=== PATIENT | male | born 1985 | race Caucasian/White ===

== ENCOUNTER → 2024-05-28 | Outpatient (CLI) | payer OTHER ==
[~2024-05-28] MED LIST: Bactrim Ds Tab1 EACH PO; CYCL10 PO; HYDACE5 PO; IBUP800 PO; NAPR550 PO; Norco 5-325 Ta1 EACH PO; SERT25 PO
== END ==
LOC: LAB 18:28 → LAB SHORT 18:28
DX: R21 Rash and other nonspecific skin eruption (principal)
CPT/HCPCS: 87070; 87147; 87205; 87252